=== PATIENT | female | born 1965 | race Caucasian/White ===

== ENCOUNTER 2023-06-21 19:07 | Emergency (ER) | payer OTHER ==
[~2023-06-21] VITALS: Ht 154.9 cm; Wt 52.2 kg
[~2023-06-21 19:07] MED LIST: ALPR2TAB5; BUPR1TAB2 SL; CLON1TAB12; GABA600T PO; GABA800T11; HYDR-4316; HYDR20TA PO; LEVO112T2 PO; SERT100T12; WARF1TAB86
[2023-06-21 23:35] VITALS: BP 132/95; TEMP 98; O2SAT 98
== END 2023-06-21 23:38 | disposition home or self-care (01) ==
LOC: ER 19:12
DX: M43.22 Fusion of spine, cervical region (principal); K21.9 Gastro-esophageal reflux disease without esophagitis; F41.9 Anxiety disorder, unspecified; Z79.899 Other long term (current) drug therapy; Z88.1 Allergy status to other antibiotic agents
CPT/HCPCS: 70450-TC; 72125-TC